=== PATIENT | female | born 1960 | race Caucasian/White ===

== ENCOUNTER 2018-01-21 10:43 | Outpatient (CLI) | payer OTHER ==
[2018-01-21 12:40] LABS: Hemoglobin 13.6 g/dL (12.0-16.0); Mean Corpuscular HGB CONC 32.8 g/dL (32.0-36.0); Mean Corpuscular Hemoglobin 31.1 pg (27.0-31.0); Mean Corpuscular Volume 94.6 fl (81.0-99.0); Mean Platelet Volume 8.5 fL (7.4-10.4); Platelet Count 237 thou/uL (130-400); RBC Distribution Width 12.9 % (11.5-14.5); Red Blood Cell (RBC) Count 4.39 mill/uL (4.20-5.40); White Blood Cell (WBC) Count 8.2 thou/uL (4.8-10.8)
[2018-01-21 12:51] LABS: Prothrombin Time 13.5 SEC (12.0-14.7)
[2018-01-21 12:52] LABS: PTT 28.3 SEC (22.9-36.1)
[2018-01-21 12:59] LABS: Anion Gap 13 mmol/L (10-20); BUN (Urea Nitrogen) 26 mg/dL (9.8-20.1); Calc. Creatinine Clearance 0 mL/min (70-130); Calcium 9.8 mg/dL (7.8-10.44); Carbon Dioxide 19 mmol/L (22-29); Chloride 114 mmol/L (98-107); Estimated GFR-MDRD 40; Glucose 157 mg/dL (70-105); Potassium 4.6 mmol/L (3.5-5.1); Sodium 141 mmol/L (136-145)
--- NOTE | 2018-01-21 13:21 | EKG ---
Test Reason : Blood Pressure : / mmHG Vent. Rate : 076 BPM Atrial Rate : 076 BPM P-R Int : 188 ms QRS Dur : 086 ms QT Int : 382 ms P-R-T Axes : 065 062 062 degrees QTc Int : 429 ms Normal sinus rhythm Normal ECG When compared with ECG of 21-AUG-2013 19:34, Vent. rate has decreased BY 40 BPM Minimal criteria for Anterior infarct are no longer Present Confirmed by LAISHA AGUILAR ([id number]) on 01/21/2018 1:20:59 PM Referred By: MOSHE Confirmed By:LAISHA AGUILAR
== END 2018-01-21 10:44 | disposition home or self-care (01) ==
LOC: LABBT 10:43
PROVIDERS: ATTEND Orthopaedic Surgery
DX: Z01.818 Encounter for other preprocedural examination (principal); M17.11 Unilateral primary osteoarthritis, right knee
CPT/HCPCS: 80048; 85027; 85610; 85730; 86850; 86900; 86901; 87081; 93005; 93010

== ENCOUNTER 2018-01-21 12:30 | Inpatient (IN) | payer OTHER ==
[2018-01-21 11:11] VITALS: BMI 42.3
[2018-01-28] MEDS ORDERED: Midazolam HCl 2 mg/2 ml Vial ONE (10:29)
[2018-01-28] MEDS ORDERED: Fentanyl 100 MCG/2 ML VIAL ONE ×4 (10:29→14:32)
[2018-01-28] MEDS ORDERED: CEFAZOLIN/Water 2 GM/20 ML SYRINGE ONE (10:37)
[2018-01-28] MEDS ORDERED: Fentanyl 100 MCG/2 ML VIAL SLOW IVP PRN (11:33)
[2018-01-28] MEDS ORDERED: Ondansetron HCl/PF 4 MG/2 ML Vial IVP PRN ×2 (11:34→13:53)
[2018-01-28] MEDS ORDERED: Zolpidem Tartrate 5 MG TAB PO PRN (11:34)
[2018-01-28] MEDS ORDERED: Promethazine HCl 25 MG/ML VIAL IM PRN ×2 (11:34→13:53)
[2018-01-28] MEDS ORDERED: HYDROcodone/Acetaminophen 10/325 mg Tablet PO PRN (11:34)
[2018-01-28] MEDS ORDERED: traMADol HCl 50 MG TAB PO PRN ×2 (11:34)
[2018-01-28] MEDS ORDERED: Neomycin-Polymyxin 1 ML AMP ONE (11:40)
[2018-01-28] MEDS ORDERED: Acetaminophen 325 MG TAB PO PRN (12:10)
[2018-01-28] MEDS ORDERED: Bupivacaine HCl 0.5%/Epinephrine 1:200,000/PF 30 ml Vial ONE (13:02)
[2018-01-28] MEDS ORDERED: Bupivacaine 0.25% HCL 30 ML VIAL ONE (13:02)
[2018-01-28] MEDS ORDERED: PHENYLEPHRINE-NS 100 MCG/ML 10 ML SYRINGE ONE (13:16)
[2018-01-28] MEDS ORDERED: Ondansetron HCl/PF 4 MG/2 ML Vial ONE (13:16)
[2018-01-28] MEDS ORDERED: Lidocaine 1% PF 5 ML VIAL ONE (13:16)
[2018-01-28] MEDS ORDERED: PROPOFOL 200 MG/20 ML VIAL ONE (13:16)
[2018-01-28] MEDS ORDERED: Promethazine HCl 25 MG/ML VIAL SLOW IVP PRN (13:53)
--- NOTE | 2018-01-28 14:17 | OP ---
DATE OF PROCEDURE: 01/28/2018 PREOPERATIVE DIAGNOSIS: Severe arthritis of right knee. POSTOPERATIVE DIAGNOSIS: Severe arthritis of right knee. PROCEDURE: Right total knee replacement. SURGEON: Monroe Miles M.D. ANESTHESIA: General. TECHNIQUE: The patient was given preoperative IV antibiotics, taken to the operating room and placed in supine position. Satisfactory general anesthesia was performed. The right lower extremity was s terilely prepped and draped in usual fashion. After exsanguination, the tourniquet was raised to 300 mmHg in the proximal right thigh. A longitudinal incision was made in the anterior aspect of the kn ee and a medial parapatellar arthrotomy was performed. The patient was noted to have fairly severe a rthritis, particularly in the medial compartment, but also moderate arthritis in the lateral compartm ent and patellofemoral joint. The spurs were removed. The medial and lateral menisci were removed. The anterior cruciate ligament was excised and using the [employer] instrumentation initially throu gh an intramedullary guide, 9 mm was removed from the distal femur at a 5 degree valgus angle. Proxi mal tibia was brought forward and using an extramedullary guide, cut was made on the proximal tibia r emoving 2 mm of the most affected medial side. Proximal tibia was measured as size 3 and the proxima l tibia was prepared for the tibial stem. The distal femur was then measured also was size 3 and the n 5 cuts were made on the femur including the anterior and posterior cuts as well as the chamfer cuts . The trial was inserted and had excellent fit over the distal femur and the holes were made for the femoral stem. Different polyethylene trials were used and the 8 mm polyethylene insert allowed for full extension of the knee with excellent stability both in flexion and extension. The trials were r emoved. The undersurface of the patella was cut and then it was measured for 38 mm 3 peg oval dome p atella, 3 holes were made for the pegs. The antibiotic impregnated methylmethacrylate was then mixed while the knee joint was copiously irrigated with antibiotic solution using the high-speed lasting machine operator . The knee was completely dried and initially the tibial component was cemented into place. It was a size 3 fixed bearing tibial PFC Sigma tray. Excess methylmethacrylate was removed. The 8 mm tibia l insert was locked into the tray. The porous cruciate retaining size 3 femoral component was impact ed over the distal femur. Knee was placed into full extension and the 38 mm 3 PEG oval dome patella was cemented into place. The knee again was irrigated. Cement was allowed to harden. The wound was then closed using #2 Vicryl for the retinacular tissue, 0 Vicryl for the fat and subcutaneous tissue , and skin was closed with skin danielle. Sterile dressing was applied. The tourniquet was then rele ased. The patient is awakened, extubated, and transferred to the recovery room in stable condition. ESTIMATED BLOOD LOSS: None. COMPLICATIONS: None. TOURNIQUET TIME: 62 minutes.
--- NOTE | 2018-01-28 16:23 | RAD ---
TWO VIEWS OF THE RIGHT KNEE: 01/28/18 INDICATION: Postop right knee. COMPARISON: None. FINDINGS: There is a right total knee prosthesis projected in the expected position. There is scattered intra-a rticular and periarticular soft tissue gas consistent with recent postop state. Surgical skin danielle over the anterior midline of the right knee. IMPRESSION: Postop right knee. POS: SHARIF
[2018-01-28] MEDS: Simvastatin 5 MG TAB PO SCH (20:12)
[2018-01-28] MEDS: Vancomycin HCl 1.5 GM in Sodium Chloride 0.9% 250 ML 300 ML IVPB SCH (20:12)
[2018-01-28] MEDS: Enoxaparin Sodium 30 MG/0.3 ML SYRINGE SC SCH (20:13)
[2018-01-28] MEDS: Metoprolol Tartrate 50 MG TAB PO SCH (20:13)
[2018-01-28] MEDS: Citalopram 20 MG TAB PO SCH (20:13)
[2018-01-28] MEDS: Bupivacaine 0.5% 50 ML in Sodium Chloride 0.9% 50 ML NERVE BLCK SCH (20:49)
[2018-01-28] MEDS ORDERED: LOVASTATIN PO SCH (21:00)
[2018-01-28] MEDS ORDERED: Dextrose 50% Abboject 50 ML SYRINGE SLOW IVP PRN (22:33)
[2018-01-28] MEDS ORDERED: HumaLOG 300 UNITS/3 ML VIAL SC PRN (22:33)
[2018-01-28] MEDS ORDERED: Dextrose 5% in Water 1,000 ML IV PRN (22:33)
[2018-01-29 05:15] LABS: Hemoglobin 11.3 g/dL (12.0-16.0); Mean Corpuscular HGB CONC 34.3 g/dL (32.0-36.0); Mean Corpuscular Hemoglobin 32.1 pg (27.0-31.0); Mean Corpuscular Volume 93.4 fL (78.0-98.0); Mean Platelet Volume 8.4 fL (7.4-10.4); Platelet Count 181 thou/uL (130-400); RBC Distribution Width 12.6 % (11.5-14.5); Red Blood Cell (RBC) Count 3.53 mill/uL (4.20-5.40); White Blood Cell (WBC) Count 6.8 thou/uL (4.8-10.8)
[2018-01-29] MEDS: Vancomycin HCl 1.5 GM in Sodium Chloride 0.9% 250 ML 300 ML IVPB SCH (09:01)
[2018-01-29] MEDS: metFORMIN 500 MG TAB PO SCH (09:05)
[2018-01-29] MEDS: Enoxaparin Sodium 30 MG/0.3 ML SYRINGE SC SCH ×2 (09:05→20:51)
[2018-01-29] MEDS: Lisinopril 20 MG TAB PO SCH (09:05)
[2018-01-29] MEDS: Simvastatin 5 MG TAB PO SCH ×2 (09:06→20:41)
[2018-01-29] MEDS: Metoprolol Tartrate 50 MG TAB PO SCH ×2 (09:06→20:41)
[2018-01-29] MEDS: Bupivacaine 0.5% 50 ML in Sodium Chloride 0.9% 50 ML NERVE BLCK SCH ×2 (10:18→23:06)
--- NOTE | 2018-01-29 11:29 | PDOC.PN ---
- Subjective Encounter Start Date: 01/29/18 Encounter Start Time: 11:15 Subjective: Consulted for general med mgmt s/p R TKA POD #1. Hx of HTN, -: DM II, Tobacco use. Feeling ok overall. Ambulated with PT. No CP, SOB. -: Reviewed all pertinent hx, labs, x-rays. - Objective MAR Reviewed: Yes Vital Signs & Weight: Vital Signs (12 hours) Temp Pulse Resp BP BP Pulse Ox 01/29/18 09:06 99.1 F 95 18 146/76 H 91 L 01/29/18 09:05 146/76 H 01/29/18 07:30 99.1 F 95 18 01/29/18 04:00 99.1 F 83 16 115/63 91 L 01/28/18 23:49 99.4 F 77 16 98/66 94 L Weight Weight 270 lb I&O: 01/28/18 01/29/18 01/30/18 06:59 06:59 06:59 Intake Total 440 Output Total 300 Balance 140 Result Diagrams: 01/29/18 04:24 Additional Labs: Accuchecks 01/29/18 05:51 POC Glucose 133 H Laboratory Tests 01/21/18 01/29/18 11:59 05:51 Sodium 141 Potassium 4.6 Chloride 114 H Carbon Dioxide 19 L BUN 26 H Creatinine 1.35 H Estimated GFR (MDRD) 40 POC Glucose 133 H EKG Reviewed by me: Yes (01/21/18 - NSR, no acute ST-T wave changes) Phys Exam - Physical Examination Constitutional: NAD HEENT: PERRLA, sclera anicteric, oral pharynx no lesions Neck: no nodes, no JVD, supple, full ROM Respiratory: no wheezing, no rales, no rhonchi, clear to auscultation bilateral S1, S2 Cardiovascular: RRR, no significant murmur, no rub, gallop Gastrointestinal: soft, non-tender, no distention, positive bowel sounds R knee with edema and post-surgical changes with dressing in place Musculoskeletal: pulses present Neurological: moves all 4 limbs Psychiatric: normal affect, A&O x 3 Skin: no rash, normal turgor, cap refill <2 seconds Dx/Plan (1) HTN (hypertension) Code(s): I10 - ESSENTIAL (PRIMARY) HYPERTENSION Status: Chronic Qualifiers: Hypertension type: essential hypertension Qualified Code(s): I10 - Essential (primary) hypertension Comment: Continue Lisinopril 20mg daily, Metoprolol 50mg BID, serial monitoring (2) DM II (diabetes mellitus, type II), controlled Code(s): E11.9 - TYPE 2 DIABETES MELLITUS WITHOUT COMPLICATIONS Status: Chronic Comment: Continue Metformin 250mg daily, ISS, serial accuchecks (3) Depression Code(s): F32.9 - MAJOR DEPRESSIVE DISORDER, SINGLE EPISODE, UNSPECIFIED Status : Chronic Comment: Continue Celexa 20mg HS (4) Status post total knee replacement, right Code(s): Z96.651 - PRESENCE OF RIGHT ARTIFICIAL KNEE JOINT Status: Acute Comment: POD #1, pain control, PT/OT for mobilization, ASA 81mg daily, Lovenox 30gm sc daily - Plan plan discussed w/ family, continue antibiotics, PT/OT, sr. social media & mobile manager, incentive spirometry, out of bed/ambulate, DVT proph w/SCDs Stable overall -: Continue routine Joint U protocol for knee replacement -: DVT ppx -: Incentive spirometry -: ASA 81mg daily * Likely home in 24h with plans on outpt PT * Thank you for the consult. Will continue to follow with primary service.
[2018-01-29] MEDS: HYDROcodone/Acetaminophen 10/325 mg Tablet PO PRN (15:30)
--- NOTE | 2018-01-29 15:53 | PRG ---
DATE OF SERVICE: 01/29/2018 SUBJECTIVE: Ms. Valderrama is 1 day status post right total knee replacement. The patient states santa t she has had fairly good pain control. She was able to get up with physical therapy and walk to the door and back this morning. She reports no other complaints. OBJECTIVE: VITAL SIGNS: Temperature 98.6, pulse 78, respiratory rate 12, blood pressure 110/69. EXTREMITIES: The right lower extremity is neurovascularly intact. The patient is able to flex and e xtend her toes and ankle well. LABORATORY: This morning, hemoglobin 11.3, hematocrit 33. PLAN: The patient will require inpatient admission for pain control and for mobilization with physic al and occupational therapy. The patient plans on going to outpatient physical therapy at discharge, possibly tomorrow.
[2018-01-29] MEDS: Citalopram 20 MG TAB PO SCH (20:40)
[2018-01-30 05:41] LABS: Hemoglobin 10.3 g/dL (12.0-16.0); Mean Corpuscular HGB CONC 32.8 g/dL (32.0-36.0); Mean Corpuscular Hemoglobin 31.5 pg (27.0-31.0); Mean Corpuscular Volume 95.9 fL (78.0-98.0); Mean Platelet Volume 8.8 fL (7.4-10.4); Platelet Count 166 thou/uL (130-400); RBC Distribution Width 12.6 % (11.5-14.5); Red Blood Cell (RBC) Count 3.28 mill/uL (4.20-5.40); White Blood Cell (WBC) Count 7.6 thou/uL (4.8-10.8)
[2018-01-30] MEDS: Lisinopril 20 MG TAB PO SCH (08:13)
[2018-01-30] MEDS: Simvastatin 5 MG TAB PO SCH (08:13)
[2018-01-30] MEDS: Enoxaparin Sodium 30 MG/0.3 ML SYRINGE SC SCH (08:14)
[2018-01-30] MEDS: metFORMIN 500 MG TAB PO SCH (08:14)
[2018-01-30] MEDS: Metoprolol Tartrate 50 MG TAB PO SCH (08:14)
[2018-01-30 11:47] VITALS: BP 103/68; TEMP 98.6
[2018-01-30] MEDS: HYDROcodone/Acetaminophen 10/325 mg Tablet PO PRN (13:31)
--- NOTE | 2018-01-30 14:45 | DIS ---
DATE OF ADMISSION: 01/28/2018 DATE OF DISCHARGE: 01/30/2018 HISTORY OF PRESENT ILLNESS: Please see admission history and physical. HOSPITAL COURSE: The patient was worked up medically prior to admission, found to be stable for surg fahad. On the day of admission, she was given perioperative IV antibiotics, taken to the operating maria ines m where she underwent a right total knee replacement. Postoperatively, the patient had a foot and le g compression devices and Lovenox for DVT prophylaxis. Physical and occupational therapy was started and by the date of discharge, the patient is able to ambulate 100 feet. Her postoperative hemoglobi n the following day was 11.3 and the day of discharge was 10.3. The patient remained afebrile. Lety l signs remained stable. The hospitalist evaluated the patient. She was very stable with her diabet es and all other medical problems. Incision was healing well. The right lower extremity remained ne urovascularly intact. The patient was able to be discharged to perform outpatient therapy. DISCHARGE DIAGNOSES: 1. Severe arthritis requiring right total knee replacement. 2. Type 2 diabetes, stable. Follow up in my office in 2 weeks. DISCHARGE MEDICATIONS: Patient will continue with her home medication including aspirin once a day. Also, wrote a prescription for Center 10 one every 6 hours as needed for pain, #60.
[2018-01-31] MEDS ORDERED: Meloxicam 15 MG TAB PO SCH ×2 (09:00)
== END 2018-01-30 15:41 | disposition home or self-care (01) | DRG 470 ==
LOC: SURG A 01-28 09:37 → SJJU 01-28 15:16
PROVIDERS: ADMIT Orthopaedic Surgery; ATTEND Orthopaedic Surgery
PROC: 0SRC0J9 Replacement of Right Knee Joint with Synthetic Substitute, Cemented, Open Approach (ICD-10-PCS; principal; 2018-01-28)
DX: M17.11 Unilateral primary osteoarthritis, right knee (principal); E11.9 Type 2 diabetes mellitus without complications; I10 Essential (primary) hypertension; F32.9 Major depressive disorder, single episode, unspecified; M25.461 Effusion, right knee; Z79.82 Long term (current) use of aspirin; Z79.899 Other long term (current) drug therapy
CPT/HCPCS: 36415; 36416; 85027; 96374; C1713; C1776; G8978-GP-CK; G8979-GP-CJ; J1650; J2250; J3010; J3370; J3490; J7050

== ENCOUNTER 2019-05-20 12:35 | Emergency (ER) | payer SELFPAY ==
--- NOTE | 2019-05-20 13:53 | RAD ---
XR Knee Lt 4 View STANDARD HISTORY: Left knee pain, injury FINDINGS: No fracture or dislocation is identified. Degenerative changes are present.
--- NOTE | 2019-05-20 13:54 | RAD ---
XR Ankle Lt 3 View STANDARD HISTORY: Left ankle pain FINDINGS: No fracture or dislocation is identified. The ankle mortise is maintained. Soft tissue swelling is pr esent. Plantar and posterior calcaneal spurs are present.
== END 2019-05-20 14:45 | disposition home or self-care (01) ==
LOC: SCSER 12:35
DX: M17.12 Unilateral primary osteoarthritis, left knee (principal); M19.072 Primary osteoarthritis, left ankle and foot; E11.9 Type 2 diabetes mellitus without complications; I10 Essential (primary) hypertension